=== PATIENT | male | born 1970 | race Caucasian/White ===

== ENCOUNTER → 2018-10-23 | Outpatient (CLI) | payer BC ==
[~2018-10-23] MED LIST: ZITHROMAX Z PA250 MG PO; ZYRTEC10 M1 PO
== END | disposition home or self-care (01) ==
LOC: RAD 08:58
DX: R06.02 Shortness of breath (principal); R05 Cough

== ENCOUNTER → 2018-11-11 | Outpatient (CLI) | payer BC | END | disposition home or self-care (01) | LOC: CT 07:46 | DX: R05 Cough (principal); R07.89 Other chest pain; R06.02 Shortness of breath ==